=== PATIENT | female | born 1970 | race African-American/Black ===

== ENCOUNTER 2019-12-05 16:41 | Inpatient (IN) | payer MEDICARE, MEDICAID ==
[~2019-12-05] VITALS: Ht 157.5 cm; Wt 44.0 kg
[2019-12-05 16:59] VITALS: BP 113/49
[2019-12-05] MEDS ORDERED: KEPPRA 500 MG500 MG PO (17:04)
[2019-12-05 18:18] LABS: HEMATOCRIT 41.2 % (37.0-47.0); HEMOGLOBIN 13.9 gm/dL (12.0-15.0); MCH 32.5 pg (26.0-34.0); MCHC 33.7 g/dL (28.0-37.0); MCV 96.5 fL (80.0-100.0); MPV 8.6 fl. (7.2-11.1); NUCLEATED RBCS 0 /100WBC; PLATELET COUNT* 287 thou/uL (150-400); RBC 4.27 mil/uL (4.20-5.00); RDW-CV 13.9 % (10.5-14.5); WBC 11.4 thou/uL (4.0-11.0)
[2019-12-05 18:31] LABS: CALCIUM 9.1 mg/dL (8.5-10.1); POTASSIUM 4.3 mmol/L (3.5-5.1)
[2019-12-05 18:35] LABS: ALBUMIN 3.7 g/dL (3.4-5.0); TOTAL BILIRUBIN 0.5 mg/dL (<0.1-1.0); TOTAL PROTEIN 8.6 g/dL (6.4-8.2)
[2019-12-05 18:44] LABS: ABSOLUTE EOSINOPHILS 0.1 thou/uL (0.0-0.7); ABSOLUTE LYMPHOCYTES 0.6 thou/uL (0.8-5.3); ABSOLUTE MONOCYTES 0.1 thou/uL (0.0-1.2); ABSOLUTE NEUTROPHILS 10.6 thou/uL (1.6-8.1); PLATELET ESTIMATE ADEQUATE
[2019-12-05 18:54] LABS: INFLUENZA A ANTIGEN Negative (Negative); INFLUENZA B ANTIGEN Negative (Negative)
[2019-12-05 19:43] LABS: URINE BILIRUBIN NEGATIVE (Negative); URINE BLOOD 1+ (Negative); URINE CLARITY CLEAR; URINE COLOR YELLOW; URINE GLUCOSE-RANDOM NEGATIVE (Negative); URINE KETONES NEGATIVE (Negative); URINE LEUKOCYTES-REFLEX NEGATIVE (Negative); URINE NITRITE-REFLEX NEGATIVE (Negative); URINE PROTEIN NEGATIVE (Negative); URINE UROBILINOGEN 0.2 E.U./dl (0.2-1.0)
[2019-12-05 19:57] LABS: SQUAMOUS 0-3 Few /LPF (0-3); URINE RBC None Seen /HPF (0-2); URINE WBC-REFLEX None Seen /HPF (0-5)
[2019-12-05 19:58] LABS: CASTS None Seen /LPF (None Seen); CRYSTALS None Seen /LPF (None Seen); MUCUS 0-3 Light strn/LPF (None Seen)
[2019-12-05 22:45] VITALS: BP 120/60
[2019-12-05 23:00] VITALS: BP 97/57
[2019-12-06 07:50] VITALS: BP 87/44
[2019-12-06 10:20] VITALS: BP 84/48
[2019-12-06 12:08] LABS: CALCIUM 8.2 mg/dL (8.5-10.1); CREATININE 1.4 mg/dL (0.6-1.3); MAGNESIUM 2.2 mg/dL (1.8-2.4); POTASSIUM 4.2 mmol/L (3.5-5.1)
[2019-12-07 08:10] VITALS: BP 88/29
[2019-12-07 15:48] LABS: ABSOLUTE LYMPHOCYTES 0.9 thou/uL (0.8-5.3); ABSOLUTE MONOCYTES 0.2 thou/uL (0.0-1.2); ABSOLUTE NEUTROPHILS 4.1 thou/uL (1.6-8.1); BASOPHILS 0.5 %; EOSINOPHILS 0.1 %; HEMATOCRIT 35.9 % (37.0-47.0); HEMOGLOBIN 12.1 gm/dL (12.0-15.0); LYMPHOCYTES 16.4 %; MCH 32.8 pg (26.0-34.0); MCHC 33.8 g/dL (28.0-37.0); MCV 97.1 fL (80.0-100.0); MPV 8.8 fl. (7.2-11.1); NUCLEATED RBCS 0 /100WBC; PLATELET COUNT* 238 thou/uL (150-400); RBC 3.69 mil/uL (4.20-5.00); RDW-CV 13.9 % (10.5-14.5); WBC 5.2 thou/uL (4.0-11.0)
[2019-12-07 16:00] VITALS: BP 107/74
[2019-12-07 16:02] LABS: CALCIUM 8.5 mg/dL (8.5-10.1); CREATININE 1.2 mg/dL (0.6-1.3); POTASSIUM 4.1 mmol/L (3.5-5.1)
[2019-12-07 19:30] VITALS: BP 159/75
[2019-12-08 08:00] VITALS: BP 128/77
--- NOTE | 2019-12-08 14:03 | CON ---
[address] [address] CONSULTATION Name: DEBRA MALONEY Room: [address] IN [facility]#: [id number] Admission: 12/05/19 Attend Phys: Lion Richards MD Discharge: Date of : 66 Report #: [id number] THIS REPORT FOR: //name// CC: FAM unknown Lion Richards DATE OF SERVICE: 12/07/2019 REASON FOR CONSULTATION: I was asked to see this 49-year-old -[place] lady for abnormal CT of the chest. HISTORY OF PRESENT ILLNESS: The patient is nonverbal. She is not able to give me any information. All of the information was obtained from chart and nursing staff. She does have Down syndrome, dementia and seizure. She was brought to the Emergency Room by her sisters due to nausea, vomiting and diarrhea. Overnight, she has not had any diarrhea, nausea or vomiting. Per nurse, she does not cough when she is eating or drinking. Last seizure was one and half months ago. She appears comfortable. She is on room air. PAST MEDICAL HISTORY: Down syndrome, dementia and seizure. FAMILY HISTORY: None per chart. SOCIAL HISTORY: No tobacco per chart. ALLERGIES: No known drug allergies. MEDICATIONS: Currently, she is on DuoNeb, Keppra, Ativan, magnesium, melatonin, Zosyn, potassium p.r.n., prednisone 20 mg daily. PHYSICAL EXAMINATION: GENERAL: She is not in distress. VITAL SIGNS: Her O2 saturation is 95% on room air, respiratory rate 16, heart rate 76, blood pressure 87/44, temperature is 37.2. HEENT: Normocephalic, atraumatic. Pupils are equal, round and reactive to light. Nose is clear. NECK: There is no lymphadenopathy or thyromegaly. CARDIOVASCULAR: Regular rate and rhythm. PMI is nondisplaced. CHEST: Inspection is normal. LUNGS: There are bibasilar crackles. No wheezing. Percussion is within normal limit. ABDOMEN: Soft. Bowel sounds are good. There is no mass. EXTREMITIES: There is no edema. LYMPHATICS: There is no lymphadenopathy. SKIN: Chronic changes. NEUROLOGIC: [place] [address] CONSULTATION Name: DEBRA MALONEY Room: [address] IN [facility]#: [id number] Admission: 12/05/19 Attend Phys: iLon Richards MD Discharge: Date of : 66 Report #: [id number] LABORATORY DATA: I reviewed the following lab data: Lactic acid 2. WBC 11.4, hemoglobin 13.9, platelets 287. Sodium 150, potassium 4.2, chloride 113, CO2 of 30, BUN 17, creatinine 1.4. Influenza A and B negative. CT of the chest did show left lower lobe ground glass consolidative opacity, abnormal bowel wall thickening involving the small bowel and colon. CT of head, no acute abnormality. IMPRESSION: 1. Abnormal CT of the chest. I suspect this is secondary to aspiration pneumonitis/pneumonia. 2. Aspiration pneumonia/pneumonitis. 3. Enterocolitis. 4. Down syndrome. 5. History of seizure. 6. Dementia. 7. Acute kidney injury, suspect secondary to dehydration. 8. Hypernatremia, suspect secondary to dehydration. PLAN AND RECOMMENDATIONS: 1. Titrate FiO2 to keep O2 saturation 92%. 2. Agree with Zosyn. 3. Continue bronchodilator. 4. IV fluid. 5. Continue anti-seizure medication. 6. I do recommend to address code status. Thank you very much for allowing me to participate in care of this very nice lady. The findings and recommendations were discussed with RN. <ELECTRONICALLY SIGNED> By: Lila Grant MD 12/08/19 [id number] Grant MD /nt
[2019-12-08 16:00] VITALS: BP 110/74
[2019-12-08 20:00] VITALS: BP 118/81
[2019-12-09 08:15] VITALS: BP 111/63
[2019-12-09 09:20] LABS: HEMATOCRIT 37.2 % (37.0-47.0); HEMOGLOBIN 12.6 gm/dL (12.0-15.0); MCH 32.3 pg (26.0-34.0); MCHC 33.8 g/dL (28.0-37.0); MCV 95.6 fL (80.0-100.0); MPV 8.4 fl. (7.2-11.1); RBC 3.89 mil/uL (4.20-5.00); RDW-CV 13.8 % (10.5-14.5); WBC 9.3 thou/uL (4.0-11.0)
[2019-12-09 09:36] LABS: ALBUMIN 2.9 g/dL (3.4-5.0); CALCIUM 8.7 mg/dL (8.5-10.1); CREATININE 1.2 mg/dL (0.6-1.3); MAGNESIUM 2.1 mg/dL (1.8-2.4); POTASSIUM 3.5 mmol/L (3.5-5.1); TOTAL BILIRUBIN 0.2 mg/dL (<0.1-1.0); TOTAL PROTEIN 7.1 g/dL (6.4-8.2)
[2019-12-09] MEDS ORDERED: LEVAQUIN 500 M500 M1 PO (10:53)
[2019-12-09] MEDS ORDERED: PREDNISONE 20 M20 MG PO (10:53)
[2019-12-09 11:40] VITALS: BP 111/63
== END 2019-12-09 13:20 | disposition home health service (06) | DRG 371 ==
LOC: M.ERS 16:41 → M.TBA-ER 21:57 → M.3W 21:57
PROVIDERS: Internal Medicine; Personal Emergency Response Attendant; ADMIT Internal Medicine
DX: A04.9 Bacterial intestinal infection, unspecified (principal); J15.6 Pneumonia due to other Gram-negative bacteria; N17.9 Acute kidney failure, unspecified; E87.0 Hyperosmolality and hypernatremia; G40.909 Epilepsy, unspecified, not intractable, without status epilepticus; F03.90 Unspecified dementia, unspecified severity, without behavioral disturbance, psychotic disturbance, mood disturbance, and anxiety; E86.0 Dehydration; R26.9 Unspecified abnormalities of gait and mobility; D72.829 Elevated white blood cell count, unspecified; Q90.9 Down syndrome, unspecified; Z79.899 Other long term (current) drug therapy